=== PATIENT | male | born 1995 | race Caucasian/White ===

== ENCOUNTER 2017-08-29 21:53 | Emergency (ER) | payer SELFPAY ==
[~2017-08-29] VITALS: Ht 175.3 cm; Wt 97.5 kg
[~2017-08-29 21:53] MED LIST: CLIN300 PO; Cleocin HCl150 MG PO; DIPH25; IBUP600 PO; IBUP800 PO; Norco 10-325 T1 EACH PO; Veetids 500500 MG PO
== END 2017-08-29 22:03 ==
LOC: ER 21:53
DX: F10.129 Alcohol abuse with intoxication, unspecified (principal); S50.812A Abrasion of left forearm, initial encounter; S50.811A Abrasion of right forearm, initial encounter; R45.1 Restlessness and agitation; F17.210 Nicotine dependence, cigarettes, uncomplicated; X58.XXXA Exposure to other specified factors, initial encounter
CPT/HCPCS: 99283

== ENCOUNTER 2017-10-02 17:29 | Emergency (ER) | payer SELFPAY ==
[~2017-10-02] VITALS: Ht 188 cm; Wt 80.7 kg
[2017-10-02] MEDS ORDERED: BENZ100A PO (18:16)
[2017-10-02] MEDS ORDERED: Cheratussin AC118 ML PO (18:16)
== END 2017-10-02 18:27 | disposition home or self-care (01) ==
LOC: ER 17:29
DX: J06.9 Acute upper respiratory infection, unspecified (principal); F17.200 Nicotine dependence, unspecified, uncomplicated
CPT/HCPCS: 94640; 99283

== ENCOUNTER 2019-07-20 09:43 | Emergency (ER) | payer OTHER ==
[~2019-07-20] VITALS: Ht 172.7 cm; Wt 104.3 kg
[~2019-07-20 09:43] MED LIST changes: +BENZ100A PO; +Cheratussin AC118 ML PO
== END 2019-07-20 12:04 | disposition home or self-care (01) ==
LOC: ER 09:43
DX: J20.8 Acute bronchitis due to other specified organisms (principal); F17.200 Nicotine dependence, unspecified, uncomplicated
CPT/HCPCS: 71046; 99283-25

== ENCOUNTER 2022-03-13 16:20 | Emergency (ER) | payer OTHER ==
[~2022-03-13] VITALS: Ht 180.3 cm; Wt 120.2 kg
[2022-03-13 18:14] LABS: BASOPHILS ABSOLUTE AUTO 0.07 K/mm3 (0.00-0.23); BASOPHILS PERCENT AUTO 1 % (0-2); EOSINOPHILS PERCENT AUTO 3 % (0-6); Hemoglobin 15.4 g/dL (13.5-17.5); IMMATURE GRAN ABSOLUTE AUTO 0.01 K/mm3 (0.00-0.10); IMMATURE GRAN PERCENT AUTO 0 % (0-1); LYMPHOCYTES ABSOLUTE AUTO 2.63 K/mm3 (0.84-5.20); LYMPHOCYTES PERCENT AUTO 37 % (21-46); MONOCYTES ABSOLUTE AUTO 0.46 K/mm3 (0.16-1.47); MONOCYTES PERCENT AUTO 7 % (4-13); Mean Corpuscular HGB 28.7 pg (26.0-34.0); Mean Corpuscular HGB Conc 33.5 g/dL (31.5-36.5); Mean Corpuscular Volume 86 fL (80-100); Mean Platelet Volume 10.1 fL (9.1-12.4); NEUTROPHILS ABSOLUTE AUTO 3.69 K/mm3 (1.96-9.15); NEUTROPHILS PERCENT AUTO 52 % (41-73); Platelet Count 260 K/mm3 (150-400); RDW Coefficient Variation 13.2 % (11.7-14.2); RDW Standard Deviation 41.7 fL (35.1-46.3); Red Blood Cell Count 5.36 M/mm3 (4.30-5.90); White Blood Cell Count 7.06 K/mm3 (4.00-11.30)
[2022-03-13 18:34] LABS: Albumin/Globulin Ratio 1.2 (0.8-1.8); Bilirubin, Total 0.3 mg/dL (0.1-1.0); Bun/Creatinine Ratio 13.3 (12.0-20.0); Calcium, Blood 9.7 mg/dL (8.5-10.1); Creatinine, Blood 1.05 mg/dL (0.60-1.20); Globulin, Blood 3.3 g/dL (2.2-4.0); Potassium, Blood 4.4 mmol/L (3.5-5.5); Total Protein, Blood 7.3 g/dL (6.4-8.2)
[2022-03-13] MEDS ORDERED: IBUP400 PO (21:21)
== END 2022-03-13 21:30 | disposition home or self-care (01) ==
LOC: ER 16:20
PROVIDERS: Physician Assistant
DX: M54.2 Cervicalgia (principal); M25.511 Pain in right shoulder; M25.512 Pain in left shoulder; K08.89 Other specified disorders of teeth and supporting structures; R07.9 Chest pain, unspecified; F17.210 Nicotine dependence, cigarettes, uncomplicated
CPT/HCPCS: 71046; 72040; 80053; 85025; 99283-25

== ENCOUNTER 2025-06-30 11:25 | Emergency (ER) | payer OTHER ==
[~2025-06-30] VITALS: Ht 170.2 cm; Wt 72.6 kg
[~2025-06-30 11:25] MED LIST changes: +AMOCLA875 PO; +IBUP400 PO; +OXYC5 PO
[2025-06-30] MEDS ORDERED: Fluorescein Sod 1MG Opth Strips RIGHTEYE ONE (11:45)
[2025-06-30] MEDS ORDERED: Tetracaine HCl/Pf 0.5% Opth Soln 4 ml BOTHEYES ONE (11:45)
[2025-06-30 11:56] VITALS: BP 144/83
[2025-06-30] MEDS ORDERED: Erythromycin 0.5% Opth Oint 1 gm RIGHTEYE ONE (12:30)
== END 2025-06-30 13:02 | disposition home or self-care (01) ==
LOC: ER 11:25
DX: H10.211 Acute toxic conjunctivitis, right eye (principal)
CPT/HCPCS: A9270